=== PATIENT | female | born 1990 | race Caucasian/White ===

== ENCOUNTER 2025-02-16 01:22 | Emergency (ER) | payer MEDICAID ==
[~2025-02-16] VITALS: Ht 170.2 cm; Wt 63.0 kg
--- NOTE | 2025-02-16 01:34 | Physician Documentation ---
History of Present Illness ~ Chief Complaint: Anxiety Stated Complaint: SOB Time Seen by MD: 01:29 OK to notify your PCP?: Yes Source: patient, RN/MD, EMS, RN notes reviewed, EMS notes reviewed, old records Mode of Arrival: EMS Exam Limitations: no limitations HPI Bed 10 This patient is a 34 y/o female BIBEMS to ED for chief complaint of shortness of breath. Patient states that she had been having a headache all day, and took two Advil at approximately 6PM, which made her feel better. Patient states that 6 hours later, at approximately midnight, her headache started to come back and she took two more Advil. Patient states that as soon as she took these Advil, she started to feel short of breath and have palpitations. She describes this shortness of breath by stating it felt as if she could not get a deep breath of air, however this has mostly resolved since arriving to the ED. Patient states that after these symptoms came on suddenly, she tried to lay down and calm herself. After a few minutes she was still having shortness of breath and palpitations, which prompted her to call for help as she thought she may have been having an allergic reaction. Patient denies having significant history of anxiety. She states she slept well last night and spent the day relaxing today. She denies any history of similar episodes. Patient denies any other associated symptoms at this time. Patient denies any other alleviating or exacerbating factors. Medication Reconciliation Allergies: Coded Allergies: guaifenesin (Verified Adverse Reaction, Intermediate, HIVES, 02/16/25) ibuprofen (Verified Adverse Reaction, Intermediate, HIVES, 02/16/25) Scheduled Potassium Chloride (Klor-Con), 1 TAB PO DAILY Past Medical History Past Medical History: No Pertinent History Past Surgical History: no surgical history Smoking Status: Never smoker Alcohol Use: None Drug Use: none Review of Systems All Other Systems at this time: Reviewed and Negative Constitutional: Reports: see HPI Physical Exam Vital Signs: RN Vital Signs have been reviewed: Yes, Temperature: 97.8, Source: Oral, Heart Rate: 104, Respiratory Rate: 18, BP: 136/71, Pulse Oximetry: 100, Weight: 63.000 Oxygen Flow Rate: 0 Physical Exam General: The patient is well developed, well nourished, nontoxic appearing and is in no acute distress. Skin: [place], warm and dry with no rashes. HEENT: Head was normocephalic and atraumatic. Eyes - pupils equal, round, reactive to light and accommodation. Extraocular movements were intact. Conjunctivae were nonicteric. Ears - bilateral tympanic membranes were normal. The mouth and oropharynx were clear with moist mucous membranes. There were no pharyngeal exudates or erythema. Neck: Supple and nontender. There was no jugular venous distention, lymphadenopathy, thyromegaly or masses. Chest: Clear to auscultation bilaterally without wheezes, rales or rhonchi. No accessory muscle use. No dullness to percussion. Heart: Rapid rate, regular rhythm. S1, S2. No murmurs. Palpation of the chest wall was normal. No rubs or thrills. Abdomen: Soft, nontender and nondistended. Positive bowel sounds. No guarding or rebound. No hepatosplenomegaly or palpable masses. Extremities: No cyanosis, clubbing or edema. The patient moves all extremities. Pulses were equal and symmetric. Neurologic: Cranial nerves II-XII were intact. Sensation was intact to light touch throughout. Motor strength was 5/5 in all four extremities. Deep tendon reflexes were intact in both upper and lower extremities. Psychologic: Anxious affect. Otherwise the patient was oriented to person, place and time. The patient demonstrated appropriate judgement and insight. Progress Results/Orders Reviewed/noted all lab results: Yes Results/Orders Orders - SLICK WRIGHT MD Electrocardiogram (02/16/25 01:29) Chest,Single View (02/16/25:) Monitor (02/16/25:) Completed Orders - SLICK WRIGHT MD Electrocardiogram (02/16/25:) Cbc/Diff (02/16/25:) Chest,Single View (02/16/25:) BMP (02/16/25:) Ethanol (02/16/25:) MG (02/16/25:) Hcg, Ur Ql (02/16/25:) Drug Screen, Urine (02/16/25:) Lorazepam Tablet (Ativan Tablet) (02/16/25 01:30) Potassium Cl Sr Tablet (K-Dur Tablet) (02/16/25 02:05) Magnesium Oxide Tablet (Mag-Ox 400mg Tab (02/16/25 02:05) Medications Received in ER Medications (Trade) Dose Ordered Sig/Homar Route PRN Reason Start Time Stop Time Status Last Admin Dose Admin (Ativan tablet) 0.5 mg ONCE PRN PO for anxiety/agitation 02/16/25 01:30 02/16/25 02:28 DC 02/16/25 02:07 0.5 MG (K-DUR tablet) 20 meq ONCE ONCE PO 02/16/25 02:05 02/16/25 02:06 DC 02/16/25 02:07 20 MEQ (mag-Ox 400mg tablet) 400 mg ONCE ONCE PO 02/16/25 02:05 02/16/25 02:06 DC 02/16/25 02:08 400 MG Vital Signs 02/16/25 02/16/25 02/16/25 01:24 01:46 02:26 Temp 97.8 97.8 Pulse 104 79 76 Resp 18 19 17 B/P (MAP) 136/71 127/87 (100) 127/79 Pulse Ox 100 100 O2 Flow Rate 0 Laboratory Tests Test 02/16/25 01:30 02/16/25 01:38 Urine HCG, Qualitative Negative Urine Opiates Screen Negative Urine Methadone Screen Negative Urine Fentanyl Screen Negative Urine Barbiturates Screen Negative Urine Phencyclidine Screen Negative Urine Amphetamines Screen Negative Urine Benzodiazepines Screen Negative Urine Cocaine Screen Negative Urine Cannabinoids Screen Negative Drug Screen Comment White Blood Count 5.7 Red Blood Count 4.61 Hemoglobin 13.4 Hematocrit 39.3 Mean Corpuscular Volume 85.2 Mean Corpuscular Hemoglobin 29.0 Mean Corpuscular Hemoglobin Concent 34.0 Red Cell Distribution Width 13.2 Platelet Count 210 Mean Platelet Volume 8.7 Neutrophils (%) (Auto) 51.6 Lymphocytes (%) (Auto) 35.7 Monocytes (%) (Auto) 6.8 Eosinophils (%) (Auto) 5.0 Basophils (%) (Auto) 0.9 Neutrophils # (Auto) 2.9 Lymphocytes # (Auto) 2.0 Monocytes # (Auto) 0.4 Eosinophils # (Auto) 0.3 Basophils # (Auto) 0.1 CBC Comment Sodium Level 136 Potassium Level 2.9 *L Chloride Level 100 Carbon Dioxide Level 24.5 Anion Gap 12 Blood Urea Nitrogen 12 Creatinine 0.90 Estimated GFR/1.73 m2 72 BUN/Creatinine Ratio 13.3 Glucose Level 141 H Calcium Level 8.8 Magnesium Level 2.1 Albumin 4.0 Chemistry Comments Ethyl Alcohol Level < 10 Re-Evaluation Re-Evaluation : Re-Evaluation: Improved Progress Patient was seen and examined. Patient is given reassurance. Patient was complaining of palpitations anxiety short of breath. Considered pulmonary embolism has a possibility. Patient has few risk factors she is not on control does not smoke no recent travel. She appears to be quite anxious and most likely her symptoms are anxiety. As far as the palpitations she was found to be hypokalemic. Patient may be hyperventilating and having a panic attack or hypokalemic causing palpitations in her symptoms. She was given supplementat ion. She is not on any diuretics or any reason to have hypokalemia unlikely to have endocrine abnormality. Patient was then discharged home after negative workup as far as negative troponins laboratory work chemistries and CBC. Patient was then discharged home to follow up with a machine setup operator. Continuous monitoring analyst interpretation shows sinus tachycardia heart rate 100s, abnormal, my interpretation. Later at time of discharge normal sinus rhythm heart rate 70s, normal, no ectopy, my interpretation. Pulse oximetry monitor interpretation shows normal oxygenation at 99% room air, normal, my interpretation. 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 Slick Wright Measurements Intervals [place] Rate: 84 P: 62 CO: 140 QRS: 26 QRSD: 82 T: -43 QT: 355 QTc: 420 Interpretive Statements Sinus rhythm Nonspecific repol abnormality, diffuse leads Electronically Signed On 02-16-2025 3:45:[address] Slick Wright Please click the below link to view image of tracing. EKG Date and Time:02/16/25 0138 Electronically Signed by: SLICK WRIGHT MD Date and Time: 02/16/25 0345 NO PRIMARY CARE PROVIDER~ cc: ~ Chest X-Ray : Interpreted By: self Views: 1 VIEW Additional Comments 0218: Dr. Wright interpreted the 1-view chest x-ray to show no infiltrates, no effusions, normal mediastinum. Heart Score: Heart Score Response (Comments) Value History Slightly Suspicious 0 EKG Repolarization Disturb 1 Age <45 0 Risk Factors No known risk factors 0 Troponin Normal limit 0 Total 1 Medical Decision Making Additional info obtained from: old records Differential Dx:Considerations: Include: Anxiety, Panic disorder, Personality disorder, Other Departure Time of Disposition: 02:21 Disposition: 01 HOME / SELF CARE / HOMELESS Impression: Primary Impression: Anxiety Additional Impressions: Palpitations Hypokalemia Condition: Stable Discharge Instructions: Palpitations, Panic Attack Additional Instructions: Please follow up with your primary care doctor and machine setup operator to discuss the possibility of a Holter monitor, which may help capture any other cardiac events in the future. Referrals: NO PRIMARY CARE PROVIDER (PCP) Prescriptions Potassium Chloride (Klor-Con) 10 Meq Tab.prt.sr 1 TAB PO DAILY for 7 Days, #7 TAB Prov: SLICK WRIGHT MD 02/16/25 Education Educated: Patient Educated regarding: diagnosis, treatment, need for follow up Signature Scribe Signature: Scribed for Slick Wirght MD by Olga Hirsch. 02/09/25 01:38 Attestation: The note accurately reflects work and decisions made by me.Slick Wright MD 02/16/25 01:34 SLICK WRIGHT MD Feb 16, 2025 01:34
--- NOTE | 2025-02-16 01:41 | ELECTROCARDIOGRAPH REPORT ---
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 Jorge Wright Measurements Intervals [place] Rate: 84 P: 62 GA: 140 QRS: 26 QRSD: 82 T: -43 QT: 355 QTc: 420 Interpretive Statements Sinus rhythm Nonspecific repol abnormality, diffuse leads Electronically Signed On 02-16-2025 3:45:[address] Jorge Wright Please click the below link to view image of tracing.
[2025-02-16 01:49] LABS: URINE HCG NEGATIVE (NEG)
[2025-02-16 01:52] LABS: BASOPHILS # (AUTO) 0.1 X10'3 (0-0.2); BASOPHILS % (AUTO) 0.9 % (0-1); EOSINOPHILS # (AUTO) 0.3 X10'3 (0-0.9); HEMATOCRIT 39.3 % (35.0-45.0); HEMOGLOBIN 13.4 g/dl (12.0-16.0); LYMPHOCYTES % (AUTO) 35.7 % (21-51); MEAN CORPUSCULAR VOLUME 85.2 FL (78-98); MEAN PLATELET VOLUME 8.7 FL (7.4-10.4); MONOCYTES # (AUTO) 0.4 X10'3 (0-0.9); MONOCYTES % (AUTO) 6.8 % (2-12); NEUTROPHILS # (AUTO) 2.9 X10'3 (1.8-7.7); NEUTROPHILS % (AUTO) 51.6 % (42-75); PLATELET COUNT 210 X10'3 (140-440); RED BLOOD COUNT 4.61 X10'6 (4.20-5.60); RED CELL DISTRIBUTION WIDTH 13.2 % (11.5-14.5); WHITE BLOOD COUNT 5.7 X10'3 (4.5-11.0)
[2025-02-16 01:57] LABS: ANION GAP 12 (8-16); BLOOD UREA NITROGEN 12 MG/DL (7-18); BUN/CREATININE RATIO 13.3 (10.0-20.0); CALCIUM 8.8 MG/DL (8.5-10.1); CHLORIDE 100 MMOL/L (99-107); ETHANOL < 10 MG/DL (<10); GLUCOSE 141 MG/DL (70-104); MAGNESIUM 2.1 MG/DL (1.5-2.4); SODIUM 136 MMOL/L (135-145); TOTAL CARBON DIOXIDE 24.5 MMOL/L (24-32); eCRCL 86 ML/MIN; eGFR 72 ML/MIN
[2025-02-16 01:59] LABS: POTASSIUM 2.9 MMOL/L (3.5-5.1)
[2025-02-16 02:01] LABS: URINE AMPHETAMINE SCREEN NEGATIVE (Neg); URINE BARBITUATE SCREEN NEGATIVE (Neg); URINE BENZODIAZEPINES SCREEN NEGATIVE (Neg); URINE CANNABINOID SCREEN NEGATIVE (Neg); URINE COCAINE SCREEN NEGATIVE (Neg); URINE METHADONE SCREEN NEGATIVE (Neg); URINE OPIATE SCREEN NEGATIVE (Neg); URINE PHENCYCLIDINE SCREEN NEGATIVE (Neg)
[2025-02-16] MEDS: LORazepam 0.5 MG tablet PO PRN (02:07)
[2025-02-16] MEDS: potassium Cl 20 mEq SR tablet PO ONE (02:07)
[2025-02-16] MEDS: magnesium oxide 400mg tablet PO ONE (02:08)
[2025-02-16] MEDS ORDERED: POTA-192 PO (02:21)
[2025-02-16 02:26] VITALS: BP 127/79; PULSE 76; RESP 17; TEMP 97.8; O2SAT 100
--- NOTE | 2025-02-16 07:02 | RADIOLOGY REPORT ---
CHEST RADIOGRAPH Indication: SOB Technique: Single frontal view of the chest was obtained Comparison: None FINDINGS: Lines and Tubes: None Lungs: No focal consolidation. Pleura: No effusion. No pneumothorax. Cardiomediastinal contours: Unremarkable Bones: No acute osseous abnormality. IMPRESSION: 1. No acute cardiopulmonary disease.
== END 2025-02-16 02:28 | disposition home or self-care (01) ==
LOC: ER 01:23
DX: F41.9 Anxiety disorder, unspecified (principal); R00.2 Palpitations; E87.6 Hypokalemia; Z88.6 Allergy status to analgesic agent; Z79.899 Other long term (current) drug therapy; Z88.8 Allergy status to other drugs, medicaments and biological substances
CPT/HCPCS: 36415; 71045; 80048; 80305; 80320; 81025; 83735; 85025; 93005; 99285